=== PATIENT | male | born 1950 | race Caucasian/White ===

== ENCOUNTER 2018-04-09 11:02 | Outpatient (CLI) | payer OTHER ==
--- NOTE | 2018-04-09 12:46 | RAD ---
RIGHT SHOULDER THREE VIEWS: Date: 04-09-18 Comparison: None. History: Right shoulder pain. FINDINGS: There is mild degenerative change at the right acromioclavicular joint. There is no widening of the A C or CC interspace. There is no displaced fracture or evidence of dislocation seen. IMPRESSION: No acute findings. POS: [facility]
== END 2018-04-09 11:03 | disposition home or self-care (01) ==
LOC: SCSRAD 11:02
PROVIDERS: ATTEND Family Medicine
DX: M25.511 Pain in right shoulder (principal)